=== PATIENT | male | born 1945 | race Hispanic/Latino ===

== ENCOUNTER → 2022-04-06 | Outpatient (CLI) | payer MEDICARE ==
[~2022-04-06] MED LIST: CYCLOBENZAPRINE10 MG PO; FARXIGA10 MG PO; KETOROLAC PO; NOVOLIN 70100 UNIT/3 SQ; NOVOLOG MI100 UNIT/1 SC
[2022-04-06 10:47] LABS: BASOPHILS % 0.3 % (0.0-1.0); EOSINOPHILS # (AUTO) 0.1 (0.0-0.4); EOSINOPHILS % 0.9 % (0.0-6.0); HEMATOCRIT 35.9 % (38.2-49.6); HEMOGLOBIN 11.4 g/dL (14.0-18.0); LYMPHOCYTES # (AUTO) 1.8 (1.0-3.2); LYMPHOCYTES % 26.3 % (18.0-39.1); MEAN CORPUSCULAR HEMOGLOBIN 31.1 pg (28-32); MEAN CORPUSCULAR HGB CONC 31.8 g/dL (31-35); MEAN CORPUSCULAR VOLUME 98.1 fL (81-99); MONOCYTES # (AUTO) 0.6 (0.2-0.8); MONOCYTES % 8.9 % (4.4-11.3); NEUTROPHILS # (AUTO) 4.4 (2.1-6.9); NEUTROPHILS % 63.5 % (38.7-80.0); PLATELET COUNT 212 x10e3/uL (140-360); RED BLOOD COUNT 3.66 x10e6/uL (4.3-5.7)
[2022-04-06 12:18] LABS: ANION GAP 13.3 mmol/L (8-16); CALCIUM 8.6 mg/dL (8.4-10.2); CREATININE, SERUM 0.88 mg/dL (0.72-1.25); POTASSIUM 4.3 mmol/L (3.5-5.1)
== END ==
LOC: RAD 10:11 → EDSTATUS 04-18 12:00
PROVIDERS: ATTEND Specialist
DX: Z01.810 Encounter for preprocedural cardiovascular examination (principal); Z01.812 Encounter for preprocedural laboratory examination; Z01.818 Encounter for other preprocedural examination; S52.201A Unspecified fracture of shaft of right ulna, initial encounter for closed fracture
CPT/HCPCS: 36415; 71046; 80048; 85025; 93005

== ENCOUNTER 2023-03-11 13:20 | Inpatient (IN) | payer MEDICARE ==
[~2023-03-11] VITALS: Ht 172.7 cm; Wt 63.5 kg
[2023-03-11] MEDS ORDERED: SODIUM CHLORIDE 0.9% 1000ML 1,000 ML IV STA (14:01)
[2023-03-11 14:26] LABS: BASOPHILS % 0.1 % (0.0-1.0); EOSINOPHILS % 0.1 % (0.0-6.0); HEMATOCRIT 30.6 % (38.2-49.6); HEMOGLOBIN 10.4 g/dL (14.0-18.0); LYMPHOCYTES # (AUTO) 1.5 (1.0-3.2); LYMPHOCYTES % 10.1 % (18.0-39.1); MEAN CORPUSCULAR VOLUME 88.2 fL (81-99); MONOCYTES # (AUTO) 0.9 (0.2-0.8); MONOCYTES % 6.4 % (4.4-11.3); PLATELET COUNT 353 x10e3/uL (140-360); RED BLOOD COUNT 3.47 x10e6/uL (4.3-5.7); RED CELL DISTRIBUTION WIDTH 12.2 % (11.7-14.4); WHITE BLOOD COUNT 14.46 x10e3/uL (4.8-10.8)
[2023-03-11 14:44] LABS: ALBUMIN 2.9 g/dL (3.5-5.0); ALBUMIN/GLOBULIN RATIO 0.5 (0.8-2.0); ANION GAP 21.3 mmol/L (8-16); BILIRUBIN,TOTAL 0.7 mg/dL (0.2-1.2); CALCIUM 9.5 mg/dL (8.4-10.2); CREATININE, SERUM 1.06 mg/dL (0.72-1.25); POTASSIUM 4.3 mmol/L (3.5-5.1); TOTAL PROTEIN 8.8 g/dL (6.5-8.1)
[2023-03-11] MEDS ORDERED: ONDANSETRON HCL INJ 2MG/ML 2ML 2 MG/ML VIAL IV PRN ×3 (16:00→22:00)
[2023-03-11] MEDS ORDERED: Morphine 4mg INJECTION 4 MG/ML INJ IV PRN ×2 (16:00)
[2023-03-11 18:05] VITALS: BP 131/61; PULSE 90; RESP 19; TEMP 98.7; O2SAT 95
[2023-03-11] MEDS ORDERED: DEXTROSE 50% SYRINGE 50 ML IV PRN ×2 (18:30→22:00)
[2023-03-11] MEDS ORDERED: COZAAR25 MG PO (18:37)
[2023-03-11] MEDS ORDERED: PLAVIX75 MG PO (18:37)
[2023-03-11] MEDS ORDERED: NEURONTIN300 MG PO (18:37)
[2023-03-11] MEDS ORDERED: VITAMIN D31250 MCG PO (18:37)
[2023-03-11 20:42] VITALS: BP 157/80; PULSE 91; RESP 18; TEMP 98.3; O2SAT 98
[2023-03-11] MEDS ORDERED: SODIUM CHLORIDE 0.9% 250ML 250 ML ONE (21:28)
[2023-03-11 21:48] VITALS: BP 157/80; PULSE 91; RESP 18; TEMP 98.3; O2SAT 98
[2023-03-11] MEDS: INSULIN LISPRO 100 UNIT/1 ML 3ML VIAL SQ SCH (21:48)
[2023-03-11] MEDS ORDERED: LIDOCAINE 4% PATCH TP PRN (22:00)
[2023-03-11] MEDS ORDERED: HYDRALAZINE HCL 20 MG/ML VIAL IV PRN (22:00)
[2023-03-11] MEDS ORDERED: DIPHENHYDRAMINE HCL 25 MG CAP PO PRN (22:00)
[2023-03-11] MEDS ORDERED: MELATONIN 5 MG TABLET PO PRN (22:00)
[2023-03-11] MEDS ORDERED: SIMETHICONE 80 MG CHEW PO PRN (22:00)
[2023-03-11] MEDS ORDERED: ALBUTEROL/IPRATROPIUM 3 ML NEB NEB PRN (22:00)
[2023-03-11] MEDS ORDERED: BENZONATATE 100 MG CAP PO PRN (22:00)
[2023-03-11] MEDS ORDERED: POTASSIUM CHLORIDE 20 MEQ TAB CR PO PRN (22:00)
[2023-03-11] MEDS: INSULIN GLARGINE 100 UNITS/ML VIAL SQ SCH (22:30)
[2023-03-12] VITALS (8 sets, daily range): BP systolic 116–143; BP diastolic 61–76; PULSE 69–106; RESP 16–20; TEMP 97.5–99; O2SAT 97–99
[2023-03-12 05:55] LABS: BASOPHILS % 0.1 % (0.0-1.0); EOSINOPHILS # (AUTO) 0.1 (0.0-0.4); EOSINOPHILS % 1.3 % (0.0-6.0); HEMATOCRIT 27.1 % (38.2-49.6); HEMOGLOBIN 9.1 g/dL (14.0-18.0); LYMPHOCYTES % 20.2 % (18.0-39.1); MEAN CORPUSCULAR HEMOGLOBIN 29.9 pg (28-32); MEAN CORPUSCULAR HGB CONC 33.6 g/dL (31-35); MEAN CORPUSCULAR VOLUME 89.1 fL (81-99); MONOCYTES # (AUTO) 0.9 (0.2-0.8); MONOCYTES % 8.9 % (4.4-11.3); NEUTROPHILS % 69.2 % (38.7-80.0); PLATELET COUNT 297 x10e3/uL (140-360); RED BLOOD COUNT 3.04 x10e6/uL (4.3-5.7); RED CELL DISTRIBUTION WIDTH 11.9 % (11.7-14.4); WHITE BLOOD COUNT 10.11 x10e3/uL (4.8-10.8)
[2023-03-12 06:35] LABS: ALBUMIN 2.5 g/dL (3.5-5.0); ALBUMIN/GLOBULIN RATIO 0.5 (0.8-2.0); ANION GAP 14.9 mmol/L (8-16); BILIRUBIN,TOTAL 0.5 mg/dL (0.2-1.2); CALCIUM 8.6 mg/dL (8.4-10.2); CREATININE, SERUM 0.82 mg/dL (0.72-1.25); POTASSIUM 3.9 mmol/L (3.5-5.1); TOTAL PROTEIN 7.3 g/dL (6.5-8.1)
[2023-03-12 07:19] LABS: CHOL/HDL RATIO 4.1 (3.9-4.7); MAGNESIUM 1.8 MG/DL (1.3-2.1)
[2023-03-12 07:40] LABS: THYROID STIMULATING HORMONE 1.557 uIU/mL (0.350-4.940)
[2023-03-12] MEDS: INSULIN LISPRO 100 UNIT/1 ML 3ML VIAL SQ SCH ×4 (08:26→20:29)
[2023-03-12] MEDS: PANTOPRAZOLE SOD 40 MG TABEC PO SCH (08:30)
[2023-03-12] MEDS: HYDROCODONE/APAP 5MG-325MG TAB PO PRN (10:00)
[2023-03-12] MEDS ORDERED: ONDANSETRON HCL 4 MG ORAL DISINTEGRATING TAB PO PRN (11:45)
[2023-03-12] MEDS: ENOXAPARIN SOD INJ 60 MG/0.6 ML SYR SC SCH ×2 (13:26→20:37)
[2023-03-12] MEDS ORDERED: ENOXAPARIN SOD INJ 40 MG/0.4 ML SYR SC SCH (17:00)
[2023-03-12] MEDS: GABAPENTIN 300 MG CAP PO SCH (17:23)
[2023-03-12] MEDS: Morphine 4mg INJECTION 4 MG/ML INJ IV PRN ×2 (17:28→21:29)
[2023-03-12] MEDS: ATORVASTATIN 40 MG TAB PO SCH (20:25)
[2023-03-12] MEDS: INSULIN GLARGINE 100 UNITS/ML VIAL SQ SCH (20:30)
[2023-03-13] VITALS (7 sets, daily range): BP systolic 113–145; BP diastolic 60–70; PULSE 90–105; RESP 18–19; TEMP 98.1–101.8; O2SAT 96–99
[2023-03-13] MEDS ORDERED: SODIUM CHLORIDE 0.9% 1000ML 1,000 ML IV SCH
[2023-03-13] MEDS: Morphine 4mg INJECTION 4 MG/ML INJ IV PRN (03:51)
[2023-03-13 05:59] LABS: BASOPHILS % 0.2 % (0.0-1.0); EOSINOPHILS # (AUTO) 0.1 (0.0-0.4); EOSINOPHILS % 1.3 % (0.0-6.0); HEMATOCRIT 26.1 % (38.2-49.6); LYMPHOCYTES # (AUTO) 1.6 (1.0-3.2); LYMPHOCYTES % 17.7 % (18.0-39.1); MEAN CORPUSCULAR HEMOGLOBIN 30.4 pg (28-32); MEAN CORPUSCULAR HGB CONC 34.5 g/dL (31-35); MEAN CORPUSCULAR VOLUME 88.2 fL (81-99); MONOCYTES # (AUTO) 0.8 (0.2-0.8); MONOCYTES % 8.7 % (4.4-11.3); NEUTROPHILS # (AUTO) 6.4 (2.1-6.9); NEUTROPHILS % 71.8 % (38.7-80.0); PLATELET COUNT 303 x10e3/uL (140-360); RED BLOOD COUNT 2.96 x10e6/uL (4.3-5.7); RED CELL DISTRIBUTION WIDTH 11.9 % (11.7-14.4); WHITE BLOOD COUNT 8.98 x10e3/uL (4.8-10.8)
[2023-03-13 06:32] LABS: ALBUMIN 2.4 g/dL (3.5-5.0); ALBUMIN/GLOBULIN RATIO 0.5 (0.8-2.0); ANION GAP 13.7 mmol/L (8-16); BILIRUBIN,TOTAL 0.4 mg/dL (0.2-1.2); CALCIUM 8.4 mg/dL (8.4-10.2); CREATININE, SERUM 0.81 mg/dL (0.72-1.25); POTASSIUM 3.7 mmol/L (3.5-5.1); TOTAL PROTEIN 6.9 g/dL (6.5-8.1)
[2023-03-13] MEDS: PANTOPRAZOLE SOD 40 MG TABEC PO SCH (07:30)
[2023-03-13] MEDS: INSULIN LISPRO 100 UNIT/1 ML 3ML VIAL SQ SCH ×5 (07:30→21:00)
[2023-03-13] MEDS ORDERED: LIDOCAINE HCL 2% LOCAL 20 ML VIAL ONE (08:21)
[2023-03-13] MEDS ORDERED: HEPARIN SOD (PORCINE) 1000 UNIT/ML 30ML ONE (08:21)
[2023-03-13] MEDS ORDERED: HEPARIN SOD/SOD CHLORIDE 2,000 ML ONE (08:22)
[2023-03-13] MEDS ORDERED: IOPAMIDOL 370 MG/ML 100 ML INFUS..BTL INJ ONE (08:22)
[2023-03-13] MEDS ORDERED: SODIUM CHLORIDE 0.9% 1000ML 1,000 ML ONE ×2 (08:22→09:01)
[2023-03-13] MEDS ORDERED: NITROGLYCERIN/D5W 200 MCG/ML 250 ML ONE (08:23)
[2023-03-13] MEDS: CLOPIDOGREL BISULFATE 75 MG TAB PO SCH (09:00)
[2023-03-13] MEDS: ENOXAPARIN SOD INJ 60 MG/0.6 ML SYR SC SCH ×2 (09:00→22:31)
[2023-03-13] MEDS ORDERED: MIDAZOLAM HCL 2 MG/2 ML VIAL ONE (09:01)
[2023-03-13] MEDS ORDERED: FENTANYL CITRATE/PF 100MCG/2 ML INJ ONE (09:01)
[2023-03-13] MEDS ORDERED: VERAPAMIL HCL 2.5 MG/ML 2 ML VIAL ONE (09:46)
[2023-03-13] MEDS ORDERED: CLOPIDOGREL BISULFATE 75 MG TAB ONE (10:14)
[2023-03-13] MEDS ORDERED: ASPIRIN 325 MG TAB ONE (10:14)
[2023-03-13] MEDS: GABAPENTIN 300 MG CAP PO SCH ×2 (12:27→17:01)
[2023-03-13] MEDS: METOPROLOL SUCCINATE 25 MG TAB XL PO SCH (12:28)
[2023-03-13] MEDS: SODIUM CHLORIDE 0.9% 1000ML 1,000 ML IV SCH ×2 (12:34→22:33)
[2023-03-13 14:49] LABS: FREE T4 (FREE THYROXINE) 1.33 ng/dL (0.8-1.8); THYROID STIMULATING HORMONE 1.024 uIU/mL (0.350-4.940)
[2023-03-13 16:29] LABS: ANION GAP 16.2 mmol/L (8-16); CALCIUM 8.8 mg/dL (8.4-10.2); CREATININE, SERUM 1.02 mg/dL (0.72-1.25); POTASSIUM 4.2 mmol/L (3.5-5.1)
[2023-03-13] MEDS: ATORVASTATIN 40 MG TAB PO SCH (22:31)
[2023-03-13] MEDS: INSULIN GLARGINE 100 UNITS/ML VIAL SQ SCH (22:36)
[2023-03-14] VITALS (7 sets, daily range): BP systolic 105–176; BP diastolic 52–93; PULSE 81–104; RESP 18–20; TEMP 98–100.2; O2SAT 93–99
[2023-03-14] MEDS: HYDROCODONE/APAP 5MG-325MG TAB PO PRN ×2 (03:13→10:40)
[2023-03-14] MEDS: INSULIN LISPRO 100 UNIT/1 ML 3ML VIAL SQ SCH ×7 (07:30→21:16)
[2023-03-14] MEDS: CLOPIDOGREL BISULFATE 75 MG TAB PO SCH (09:07)
[2023-03-14] MEDS: PANTOPRAZOLE SOD 40 MG TABEC PO SCH (09:07)
[2023-03-14] MEDS: GABAPENTIN 300 MG CAP PO SCH ×2 (09:07→17:16)
[2023-03-14] MEDS: ASPIRIN 81 MG CHEW TAB PO SCH (09:08)
[2023-03-14] MEDS: METOPROLOL SUCCINATE 25 MG TAB XL PO SCH (09:08)
[2023-03-14] MEDS: ENOXAPARIN SOD INJ 60 MG/0.6 ML SYR SC SCH ×2 (09:08→21:08)
[2023-03-14] MEDS: SODIUM CHLORIDE 0.9% 1000ML 1,000 ML IV SCH (09:09)
[2023-03-14] MEDS: ACETAMINOPHEN 325 MG TAB PO PRN (17:20)
[2023-03-14] MEDS: ATORVASTATIN 40 MG TAB PO SCH (21:08)
[2023-03-14] MEDS: INSULIN GLARGINE 100 UNITS/ML VIAL SQ SCH (21:17)
[2023-03-14] MEDS: Morphine 4mg INJECTION 4 MG/ML INJ IV PRN (21:22)
[2023-03-15] VITALS (7 sets, daily range): BP systolic 111–138; BP diastolic 54–73; PULSE 62–105; RESP 17–20; TEMP 97.8–99.9; O2SAT 94–98
[2023-03-15] MEDS: SODIUM CHLORIDE 0.9% 1000ML 1,000 ML IV SCH ×2 (01:44→20:48)
[2023-03-15 06:23] LABS: BASOPHILS % 0.2 % (0.0-1.0); EOSINOPHILS # (AUTO) 0.1 (0.0-0.4); EOSINOPHILS % 0.6 % (0.0-6.0); HEMATOCRIT 25.7 % (38.2-49.6); HEMOGLOBIN 8.5 g/dL (14.0-18.0); LYMPHOCYTES # (AUTO) 1.7 (1.0-3.2); LYMPHOCYTES % 16.5 % (18.0-39.1); MEAN CORPUSCULAR HEMOGLOBIN 30.4 pg (28-32); MEAN CORPUSCULAR HGB CONC 33.1 g/dL (31-35); MEAN CORPUSCULAR VOLUME 91.8 fL (81-99); MONOCYTES # (AUTO) 0.8 (0.2-0.8); MONOCYTES % 8.2 % (4.4-11.3); NEUTROPHILS # (AUTO) 7.5 (2.1-6.9); NEUTROPHILS % 74.2 % (38.7-80.0); PLATELET COUNT 290 x10e3/uL (140-360); RED CELL DISTRIBUTION WIDTH 12.5 % (11.7-14.4); WHITE BLOOD COUNT 10.09 x10e3/uL (4.8-10.8)
[2023-03-15 06:40] LABS: ANION GAP 12.9 mmol/L (8-16); CALCIUM 8.3 mg/dL (8.4-10.2); CREATININE, SERUM 0.8 mg/dL (0.72-1.25); POTASSIUM 3.9 mmol/L (3.5-5.1)
[2023-03-15] MEDS: INSULIN LISPRO 100 UNIT/1 ML 3ML VIAL SQ SCH ×7 (07:30→21:01)
[2023-03-15] MEDS: PANTOPRAZOLE SOD 40 MG TABEC PO SCH ×2 (07:30→09:37)
[2023-03-15] MEDS: CLOPIDOGREL BISULFATE 75 MG TAB PO SCH (09:00)
[2023-03-15] MEDS: GABAPENTIN 300 MG CAP PO SCH ×3 (09:00→17:54)
[2023-03-15] MEDS: ASPIRIN 81 MG CHEW TAB PO SCH (09:00)
[2023-03-15] MEDS: METOPROLOL SUCCINATE 25 MG TAB XL PO SCH (09:32)
[2023-03-15] MEDS: ENOXAPARIN SOD INJ 60 MG/0.6 ML SYR SC SCH ×2 (09:32→20:53)
[2023-03-15] MEDS: HYDROCODONE/APAP 5MG-325MG TAB PO PRN (13:13)
[2023-03-15] MEDS: ONDANSETRON HCL INJ 2MG/ML 2ML 2 MG/ML VIAL IV PRN ×2 (17:47→22:31)
[2023-03-15] MEDS: Morphine 4mg INJECTION 4 MG/ML INJ IV PRN ×2 (17:47→22:31)
[2023-03-15] MEDS: ATORVASTATIN 40 MG TAB PO SCH (20:49)
[2023-03-15] MEDS: ACETAMINOPHEN 325 MG TAB PO PRN (20:50)
[2023-03-15] MEDS: INSULIN GLARGINE 100 UNITS/ML VIAL SQ SCH (21:00)
[2023-03-16] VITALS (8 sets, daily range): BP systolic 107–141; BP diastolic 59–73; PULSE 52–100; RESP 18–20; TEMP 97.2–99.3; O2SAT 93–100
[2023-03-16] MEDS: SODIUM CHLORIDE 0.9% 1000ML 1,000 ML IV SCH ×3 (06:05→17:48)
[2023-03-16 06:36] LABS: BASOPHILS % 0.2 % (0.0-1.0); EOSINOPHILS # (AUTO) 0.1 (0.0-0.4); EOSINOPHILS % 1.3 % (0.0-6.0); HEMATOCRIT 23.5 % (38.2-49.6); HEMOGLOBIN 7.7 g/dL (14.0-18.0); LYMPHOCYTES # (AUTO) 1.3 (1.0-3.2); LYMPHOCYTES % 14.3 % (18.0-39.1); MEAN CORPUSCULAR HEMOGLOBIN 30.2 pg (28-32); MEAN CORPUSCULAR HGB CONC 32.8 g/dL (31-35); MEAN CORPUSCULAR VOLUME 92.2 fL (81-99); MONOCYTES % 10.4 % (4.4-11.3); NEUTROPHILS # (AUTO) 6.9 (2.1-6.9); NEUTROPHILS % 73.5 % (38.7-80.0); PLATELET COUNT 303 x10e3/uL (140-360); RED BLOOD COUNT 2.55 x10e6/uL (4.3-5.7); RED CELL DISTRIBUTION WIDTH 12.9 % (11.7-14.4); WHITE BLOOD COUNT 9.34 x10e3/uL (4.8-10.8)
[2023-03-16 07:03] LABS: CREATININE, SERUM 0.85 mg/dL (0.72-1.25)
[2023-03-16] MEDS: ENOXAPARIN SOD INJ 60 MG/0.6 ML SYR SC SCH ×2 (09:00→20:27)
[2023-03-16] MEDS: METOPROLOL SUCCINATE 25 MG TAB XL PO SCH (09:42)
[2023-03-16] MEDS: PANTOPRAZOLE SOD 40 MG TABEC PO SCH (09:42)
[2023-03-16] MEDS: GABAPENTIN 300 MG CAP PO SCH ×2 (09:42→17:44)
[2023-03-16] MEDS: INSULIN LISPRO 100 UNIT/1 ML 3ML VIAL SQ SCH ×7 (09:43→21:00)
[2023-03-16] MEDS: ONDANSETRON HCL INJ 2MG/ML 2ML 2 MG/ML VIAL IV PRN ×2 (09:45→21:02)
[2023-03-16] MEDS: DOCUSATE SODIUM 100 MG CAP PO PRN (09:49)
[2023-03-16] MEDS: ASPIRIN 81 MG CHEW TAB PO SCH (11:11)
[2023-03-16] MEDS: HYDROCODONE/APAP 5MG-325MG TAB PO PRN ×2 (14:13→20:19)
[2023-03-16] MEDS: ATORVASTATIN 40 MG TAB PO SCH (20:21)
[2023-03-16] MEDS: INSULIN GLARGINE 100 UNITS/ML VIAL SQ SCH (20:36)
[2023-03-17] VITALS (8 sets, daily range): BP systolic 100–135; BP diastolic 57–74; PULSE 71–124; RESP 18–20; TEMP 98.4–99.4; O2SAT 92–98
[2023-03-17] MEDS: SODIUM CHLORIDE 0.9% 1000ML 1,000 ML IV SCH ×2 (05:37→15:20)
[2023-03-17 05:41] LABS: BASOPHILS % 0.2 % (0.0-1.0); EOSINOPHILS # (AUTO) 0.1 (0.0-0.4); EOSINOPHILS % 0.9 % (0.0-6.0); HEMATOCRIT 23.7 % (38.2-49.6); HEMOGLOBIN 7.8 g/dL (14.0-18.0); LYMPHOCYTES # (AUTO) 1.4 (1.0-3.2); LYMPHOCYTES % 16.3 % (18.0-39.1); MEAN CORPUSCULAR HEMOGLOBIN 30.5 pg (28-32); MEAN CORPUSCULAR HGB CONC 32.9 g/dL (31-35); MEAN CORPUSCULAR VOLUME 92.6 fL (81-99); MONOCYTES # (AUTO) 0.8 (0.2-0.8); MONOCYTES % 9.3 % (4.4-11.3); NEUTROPHILS # (AUTO) 6.4 (2.1-6.9); PLATELET COUNT 319 x10e3/uL (140-360); RED BLOOD COUNT 2.56 x10e6/uL (4.3-5.7); RED CELL DISTRIBUTION WIDTH 13.2 % (11.7-14.4); WHITE BLOOD COUNT 8.79 x10e3/uL (4.8-10.8)
[2023-03-17 06:11] LABS: ANION GAP 12.2 mmol/L (8-16); CREATININE, SERUM 0.79 mg/dL (0.72-1.25); POTASSIUM 4.2 mmol/L (3.5-5.1)
[2023-03-17] MEDS: PANTOPRAZOLE SOD 40 MG TABEC PO SCH (08:42)
[2023-03-17] MEDS: GABAPENTIN 300 MG CAP PO SCH ×2 (08:42→17:06)
[2023-03-17] MEDS: ASPIRIN 81 MG CHEW TAB PO SCH (08:42)
[2023-03-17] MEDS: METOPROLOL SUCCINATE 25 MG TAB XL PO SCH (08:43)
[2023-03-17] MEDS: INSULIN LISPRO 100 UNIT/1 ML 3ML VIAL SQ SCH ×7 (08:44→20:55)
[2023-03-17] MEDS: ENOXAPARIN SOD INJ 60 MG/0.6 ML SYR SC SCH (08:47)
[2023-03-17] MEDS: ONDANSETRON HCL INJ 2MG/ML 2ML 2 MG/ML VIAL IV PRN ×2 (10:26→20:52)
[2023-03-17] MEDS: HYDROCODONE/APAP 5MG-325MG TAB PO PRN ×2 (10:27→18:45)
[2023-03-17] MEDS: Morphine 4mg INJECTION 4 MG/ML INJ IV PRN ×2 (15:19→20:53)
[2023-03-17] MEDS: SODIUM CHLORIDE 1 GM TAB PO SCH ×2 (15:20→20:50)
[2023-03-17] MEDS ORDERED: SODIUM CHLORIDE 0.9% 250ML 250 ML IV ONE (18:15)
[2023-03-17] MEDS: ATORVASTATIN 40 MG TAB PO SCH (20:50)
[2023-03-17] MEDS: ACETAMINOPHEN 325 MG TAB PO PRN (20:50)
[2023-03-17] MEDS: INSULIN GLARGINE 100 UNITS/ML VIAL SQ SCH (20:55)
[2023-03-18] VITALS (9 sets, daily range): BP systolic 112–154; BP diastolic 63–83; PULSE 86–102; RESP 16–19; TEMP 98–99.3; O2SAT 92–100
[2023-03-18] MEDS ORDERED: SODIUM CHLORIDE 0.9% 250ML 250 ML ONE (00:24)
[2023-03-18] MEDS: SODIUM CHLORIDE 0.9% 1000ML 1,000 ML IV SCH ×3 (03:04→20:53)
[2023-03-18 05:59] LABS: BASOPHILS % 0.3 % (0.0-1.0); EOSINOPHILS # (AUTO) 0.1 (0.0-0.4); EOSINOPHILS % 0.7 % (0.0-6.0); HEMATOCRIT 25.9 % (38.2-49.6); HEMOGLOBIN 8.6 g/dL (14.0-18.0); LYMPHOCYTES # (AUTO) 1.5 (1.0-3.2); LYMPHOCYTES % 13.5 % (18.0-39.1); MEAN CORPUSCULAR HEMOGLOBIN 30.5 pg (28-32); MEAN CORPUSCULAR HGB CONC 33.2 g/dL (31-35); MEAN CORPUSCULAR VOLUME 91.8 fL (81-99); MONOCYTES # (AUTO) 0.9 (0.2-0.8); MONOCYTES % 8.4 % (4.4-11.3); NEUTROPHILS # (AUTO) 8.5 (2.1-6.9); NEUTROPHILS % 76.7 % (38.7-80.0); PLATELET COUNT 324 x10e3/uL (140-360); RED BLOOD COUNT 2.82 x10e6/uL (4.3-5.7); RED CELL DISTRIBUTION WIDTH 13.8 % (11.7-14.4); WHITE BLOOD COUNT 11.12 x10e3/uL (4.8-10.8)
[2023-03-18 06:34] LABS: ANION GAP 14.2 mmol/L (8-16); CALCIUM 7.9 mg/dL (8.4-10.2); CREATININE, SERUM 0.85 mg/dL (0.72-1.25); POTASSIUM 4.2 mmol/L (3.5-5.1)
[2023-03-18] MEDS: PANTOPRAZOLE SOD 40 MG TABEC PO SCH (07:30)
[2023-03-18] MEDS: INSULIN LISPRO 100 UNIT/1 ML 3ML VIAL SQ SCH ×7 (07:30→21:15)
[2023-03-18] MEDS: GABAPENTIN 300 MG CAP PO SCH ×2 (08:13→18:13)
[2023-03-18] MEDS: METOPROLOL SUCCINATE 25 MG TAB XL PO SCH (08:13)
[2023-03-18] MEDS: ASPIRIN 81 MG CHEW TAB PO SCH (08:13)
[2023-03-18] MEDS: SODIUM CHLORIDE 1 GM TAB PO SCH (09:00)
[2023-03-18] MEDS: Morphine 4mg INJECTION 4 MG/ML INJ IV PRN (09:26)
[2023-03-18] MEDS: ONDANSETRON HCL INJ 2MG/ML 2ML 2 MG/ML VIAL IV PRN (10:17)
[2023-03-18] MEDS ORDERED: SEVOFLURANE INHAL SOLN 250 ML PEN BTL ONE (11:50)
[2023-03-18] MEDS ORDERED: PROPOFOL IV EMULSION 10 MG/ML 20 ML VIAL ONE (11:50)
[2023-03-18] MEDS ORDERED: LIDOCAINE HCL 2% LOCAL INJ 5 ML SDV VIAL INJ ONE (11:50)
[2023-03-18] MEDS ORDERED: FENTANYL CITRATE/PF 100MCG/2 ML INJ ONE (11:54)
[2023-03-18] MEDS ORDERED: ONDANSETRON HCL INJ 2MG/ML 2ML 2 MG/ML VIAL IV PRN (14:15)
[2023-03-18] MEDS ORDERED: Morphine 4mg INJECTION 4 MG/ML INJ ONE (14:35)
[2023-03-18] MEDS ORDERED: ACETAMINOPHEN 1000 MG/100 ML IV PRN (17:00)
[2023-03-18] MEDS: HYDROCODONE/APAP 7.5MG-325MG 1 EA TAB PO PRN ×2 (18:14→20:53)
[2023-03-18] MEDS: ATORVASTATIN 40 MG TAB PO SCH (20:53)
[2023-03-18] MEDS: INSULIN GLARGINE 100 UNITS/ML VIAL SQ SCH (20:56)
[2023-03-18] MEDS: HYDROMORPHONE 1MG/1ML INJ IV PRN (23:43)
[2023-03-19] VITALS (8 sets, daily range): BP systolic 96–141; BP diastolic 58–72; PULSE 61–93; RESP 18–20; TEMP 97.5–98.8; O2SAT 92–100
[2023-03-19 06:20] LABS: BASOPHILS % 0.2 % (0.0-1.0); EOSINOPHILS # (AUTO) 0.1 (0.0-0.4); EOSINOPHILS % 1.7 % (0.0-6.0); HEMATOCRIT 23.9 % (38.2-49.6); LYMPHOCYTES # (AUTO) 1.3 (1.0-3.2); LYMPHOCYTES % 18.8 % (18.0-39.1); MEAN CORPUSCULAR HGB CONC 33.1 g/dL (31-35); MEAN CORPUSCULAR VOLUME 90.9 fL (81-99); MONOCYTES # (AUTO) 0.6 (0.2-0.8); MONOCYTES % 9.2 % (4.4-11.3); NEUTROPHILS # (AUTO) 4.6 (2.1-6.9); NEUTROPHILS % 69.3 % (38.7-80.0); PLATELET COUNT 373 x10e3/uL (140-360); RED BLOOD COUNT 2.63 x10e6/uL (4.3-5.7); RED CELL DISTRIBUTION WIDTH 14.3 % (11.7-14.4); WHITE BLOOD COUNT 6.64 x10e3/uL (4.8-10.8)
[2023-03-19 06:33] LABS: HEMOGLOBIN 7.9 g/dL (14.0-18.0)
[2023-03-19 06:49] LABS: ANION GAP 11.8 mmol/L (8-16); CALCIUM 7.7 mg/dL (8.4-10.2); CREATININE, SERUM 0.78 mg/dL (0.72-1.25); POTASSIUM 3.8 mmol/L (3.5-5.1)
[2023-03-19] MEDS: INSULIN LISPRO 100 UNIT/1 ML 3ML VIAL SQ SCH ×7 (08:19→21:00)
[2023-03-19] MEDS: ASPIRIN 81 MG CHEW TAB PO SCH (10:10)
[2023-03-19] MEDS: HYDROCODONE/APAP 7.5MG-325MG 1 EA TAB PO PRN ×2 (10:11→14:18)
[2023-03-19] MEDS: GABAPENTIN 300 MG CAP PO SCH ×2 (10:11→16:49)
[2023-03-19] MEDS: PANTOPRAZOLE SOD 40 MG TABEC PO SCH (10:11)
[2023-03-19] MEDS: METOPROLOL SUCCINATE 25 MG TAB XL PO SCH (10:11)
[2023-03-19] MEDS: SODIUM CHLORIDE 0.9% 1000ML 1,000 ML IV SCH (10:18)
[2023-03-19] MEDS: ENOXAPARIN SOD INJ 40 MG/0.4 ML SYR SC SCH (16:50)
[2023-03-19] MEDS: HYDROMORPHONE 1MG/1ML INJ IV PRN (19:30)
[2023-03-19] MEDS: ATORVASTATIN 40 MG TAB PO SCH (20:00)
[2023-03-19] MEDS ORDERED: INSULIN GLARGINE 100 UNITS/ML VIAL SQ SCH (21:00)
[2023-03-20] VITALS (7 sets, daily range): BP systolic 114–146; BP diastolic 61–76; PULSE 88–101; RESP 16–20; TEMP 98.6–99.4; O2SAT 94–100
[2023-03-20] MEDS: HYDROMORPHONE 1MG/1ML INJ IV PRN ×2 (00:49→04:11)
[2023-03-20 05:58] LABS: BASOPHILS % 0.1 % (0.0-1.0); EOSINOPHILS # (AUTO) 0.1 (0.0-0.4); EOSINOPHILS % 1.1 % (0.0-6.0); HEMATOCRIT 25.7 % (38.2-49.6); HEMOGLOBIN 8.4 g/dL (14.0-18.0); LYMPHOCYTES # (AUTO) 1.2 (1.0-3.2); LYMPHOCYTES % 12.8 % (18.0-39.1); MEAN CORPUSCULAR HEMOGLOBIN 29.9 pg (28-32); MEAN CORPUSCULAR HGB CONC 32.7 g/dL (31-35); MEAN CORPUSCULAR VOLUME 91.5 fL (81-99); MONOCYTES # (AUTO) 0.7 (0.2-0.8); MONOCYTES % 7.8 % (4.4-11.3); NEUTROPHILS # (AUTO) 7.3 (2.1-6.9); NEUTROPHILS % 77.5 % (38.7-80.0); PLATELET COUNT 382 x10e3/uL (140-360); RED BLOOD COUNT 2.81 x10e6/uL (4.3-5.7); RED CELL DISTRIBUTION WIDTH 14.2 % (11.7-14.4); WHITE BLOOD COUNT 9.36 x10e3/uL (4.8-10.8)
[2023-03-20 06:19] LABS: ANION GAP 13.1 mmol/L (8-16); CALCIUM 8.1 mg/dL (8.4-10.2); CREATININE, SERUM 0.84 mg/dL (0.72-1.25); POTASSIUM 4.1 mmol/L (3.5-5.1)
[2023-03-20] MEDS ORDERED: ONDANSETRON HCL 4 MG ORAL DISINTEGRATING TAB PO PRN (07:30)
[2023-03-20] MEDS: PANTOPRAZOLE SOD 40 MG TABEC PO SCH (09:02)
[2023-03-20] MEDS: ASPIRIN 81 MG CHEW TAB PO SCH (09:03)
[2023-03-20] MEDS: METOPROLOL SUCCINATE 25 MG TAB XL PO SCH (09:03)
[2023-03-20] MEDS: GABAPENTIN 300 MG CAP PO SCH ×2 (09:03→17:55)
[2023-03-20] MEDS: INSULIN LISPRO 100 UNIT/1 ML 3ML VIAL SQ SCH ×7 (09:04→20:23)
[2023-03-20] MEDS: DOCUSATE SODIUM 100 MG CAP PO PRN (14:10)
[2023-03-20] MEDS: HYDROCODONE/APAP 7.5MG-325MG 1 EA TAB PO PRN ×2 (14:12→23:52)
[2023-03-20] MEDS ORDERED: CITRATE OF MAGNESIA 300ML BOTTLE PO ONE (15:00)
[2023-03-20] MEDS: ENOXAPARIN SOD INJ 40 MG/0.4 ML SYR SC SCH (17:56)
[2023-03-20] MEDS: ATORVASTATIN 40 MG TAB PO SCH (20:18)
[2023-03-20] MEDS ORDERED: INSULIN GLARGINE 100 UNITS/ML VIAL SQ SCH (21:00)
[2023-03-21] VITALS: BP 138/74; PULSE 90; RESP 20; TEMP 99.6; O2SAT 96
[2023-03-21 04:00] VITALS: BP 136/70; PULSE 89; RESP 20; TEMP 99.4; O2SAT 92
[2023-03-21 06:44] LABS: BASOPHILS % 0.1 % (0.0-1.0); EOSINOPHILS # (AUTO) 0.1 (0.0-0.4); EOSINOPHILS % 0.9 % (0.0-6.0); LYMPHOCYTES # (AUTO) 1.4 (1.0-3.2); MEAN CORPUSCULAR HEMOGLOBIN 29.4 pg (28-32); MEAN CORPUSCULAR VOLUME 91.9 fL (81-99); MONOCYTES # (AUTO) 0.7 (0.2-0.8); MONOCYTES % 7.9 % (4.4-11.3); NEUTROPHILS # (AUTO) 6.2 (2.1-6.9); NEUTROPHILS % 73.6 % (38.7-80.0); PLATELET COUNT 375 x10e3/uL (140-360); RED BLOOD COUNT 2.72 x10e6/uL (4.3-5.7); RED CELL DISTRIBUTION WIDTH 14.3 % (11.7-14.4); WHITE BLOOD COUNT 8.48 x10e3/uL (4.8-10.8)
[2023-03-21 07:04] LABS: ANION GAP 14.1 mmol/L (8-16); CALCIUM 8.1 mg/dL (8.4-10.2); CREATININE, SERUM 0.77 mg/dL (0.72-1.25); POTASSIUM 4.1 mmol/L (3.5-5.1)
[2023-03-21 08:25] VITALS: BP 141/76; PULSE 96; RESP 16; TEMP 98.1; O2SAT 96
[2023-03-21 08:53] VITALS: BP 141/76; PULSE 96; RESP 16; TEMP 98.1; O2SAT 96
[2023-03-21] MEDS: PANTOPRAZOLE SOD 40 MG TABEC PO SCH (10:00)
[2023-03-21] MEDS: ASPIRIN 81 MG CHEW TAB PO SCH (10:00)
[2023-03-21] MEDS: METOPROLOL SUCCINATE 25 MG TAB XL PO SCH (10:01)
[2023-03-21] MEDS: GABAPENTIN 300 MG CAP PO SCH ×2 (10:01→17:02)
[2023-03-21] MEDS: INSULIN LISPRO 100 UNIT/1 ML 3ML VIAL SQ SCH ×7 (10:03→20:41)
[2023-03-21 11:37] VITALS: BP 106/64; PULSE 98; RESP 19; TEMP 97.9; O2SAT 93
[2023-03-21] MEDS: CLOPIDOGREL BISULFATE 75 MG TAB PO SCH (13:11)
[2023-03-21] MEDS: HYDROCODONE/APAP 7.5MG-325MG 1 EA TAB PO PRN (13:54)
[2023-03-21] MEDS: ENOXAPARIN SOD INJ 40 MG/0.4 ML SYR SC SCH (17:02)
[2023-03-21 20:00] VITALS: BP 124/66; PULSE 90; RESP 18; TEMP 98.6; O2SAT 95
[2023-03-21] MEDS: ATORVASTATIN 40 MG TAB PO SCH (21:30)
[2023-03-21] MEDS: INSULIN GLARGINE 100 UNITS/ML VIAL SQ SCH (21:35)
[2023-03-22] VITALS (9 sets, daily range): BP systolic 114–145; BP diastolic 61–74; PULSE 88–101; RESP 16–19; TEMP 97.5–101.7; O2SAT 92–96
[2023-03-22] MEDS: ACETAMINOPHEN 325 MG TAB PO PRN (05:55)
[2023-03-22] MEDS: PANTOPRAZOLE SOD 40 MG TABEC PO SCH (08:59)
[2023-03-22] MEDS: INSULIN LISPRO 100 UNIT/1 ML 3ML VIAL SQ SCH ×7 (09:05→20:45)
[2023-03-22] MEDS: METOPROLOL SUCCINATE 25 MG TAB XL PO SCH (09:15)
[2023-03-22] MEDS: CLOPIDOGREL BISULFATE 75 MG TAB PO SCH (09:15)
[2023-03-22] MEDS: ASPIRIN 81 MG CHEW TAB PO SCH (09:15)
[2023-03-22] MEDS: GABAPENTIN 300 MG CAP PO SCH (09:15)
[2023-03-22] MEDS ORDERED: Vancomycin IV 1 GM in SODIUM CHLORIDE 0.9% 250ML 250 ML IV ONE (10:30)
[2023-03-22] MEDS: CEFTRIAXONE 2 GM in SODIUM CHLORIDE 0.9% 100 ML IV SCH ×2 (10:54→20:30)
[2023-03-22] MEDS: HYDROCODONE/APAP 7.5MG-325MG 1 EA TAB PO PRN (13:30)
[2023-03-22] MEDS: ENOXAPARIN SOD INJ 40 MG/0.4 ML SYR SC SCH (16:51)
[2023-03-22] MEDS: HYDROMORPHONE 1MG/1ML INJ IV PRN (17:33)
[2023-03-22] MEDS: ATORVASTATIN 40 MG TAB PO SCH (20:20)
[2023-03-22] MEDS: Vancomycin IV 1 GM in SODIUM CHLORIDE 0.9% 250ML 250 ML IV SCH (20:23)
[2023-03-22] MEDS: INSULIN GLARGINE 100 UNITS/ML VIAL SQ SCH (20:42)
[2023-03-23] VITALS (8 sets, daily range): BP systolic 117–147; BP diastolic 56–81; PULSE 91–98; RESP 17–20; TEMP 98.2–99.3; O2SAT 91–98
[2023-03-23] MEDS: INSULIN LISPRO 100 UNIT/1 ML 3ML VIAL SQ SCH ×7 (07:30→19:46)
[2023-03-23] MEDS: PANTOPRAZOLE SOD 40 MG TABEC PO SCH (08:53)
[2023-03-23] MEDS: METOPROLOL SUCCINATE 25 MG TAB XL PO SCH (08:53)
[2023-03-23] MEDS: ASPIRIN 81 MG CHEW TAB PO SCH (08:53)
[2023-03-23] MEDS: CLOPIDOGREL BISULFATE 75 MG TAB PO SCH (08:54)
[2023-03-23] MEDS: CEFTRIAXONE 2 GM in SODIUM CHLORIDE 0.9% 100 ML IV SCH (08:55)
[2023-03-23] MEDS: Vancomycin IV 1 GM in SODIUM CHLORIDE 0.9% 250ML 250 ML IV SCH (10:45)
[2023-03-23 11:54] LABS: BASOPHILS % 0.2 % (0.0-1.0); EOSINOPHILS % 0.2 % (0.0-6.0); HEMATOCRIT 24.8 % (38.2-49.6); HEMOGLOBIN 8.1 g/dL (14.0-18.0); LYMPHOCYTES # (AUTO) 1.4 (1.0-3.2); LYMPHOCYTES % 11.2 % (18.0-39.1); MEAN CORPUSCULAR HEMOGLOBIN 29.8 pg (28-32); MEAN CORPUSCULAR HGB CONC 32.7 g/dL (31-35); MEAN CORPUSCULAR VOLUME 91.2 fL (81-99); MONOCYTES # (AUTO) 0.9 (0.2-0.8); MONOCYTES % 7.6 % (4.4-11.3); NEUTROPHILS # (AUTO) 9.8 (2.1-6.9); NEUTROPHILS % 80.3 % (38.7-80.0); PLATELET COUNT 398 x10e3/uL (140-360); RED BLOOD COUNT 2.72 x10e6/uL (4.3-5.7); RED CELL DISTRIBUTION WIDTH 14.4 % (11.7-14.4); WHITE BLOOD COUNT 12.18 x10e3/uL (4.8-10.8)
[2023-03-23 12:22] LABS: ALBUMIN 2.2 g/dL (3.5-5.0); ALBUMIN/GLOBULIN RATIO 0.5 (0.8-2.0); ANION GAP 15.2 mmol/L (8-16); BILIRUBIN,TOTAL 0.5 mg/dL (0.2-1.2); CALCIUM 8.4 mg/dL (8.4-10.2); CREATININE, SERUM 0.73 mg/dL (0.72-1.25); POTASSIUM 4.2 mmol/L (3.5-5.1)
[2023-03-23 12:50] LABS: ALBUMIN 2.2 g/dL (3.5-5.0); BILIRUBIN,DIRECT 0.3 mg/dL (0.0-0.5); BILIRUBIN,TOTAL 0.5 mg/dL (0.2-1.2)
[2023-03-23] MEDS: HYDROCODONE/APAP 7.5MG-325MG 1 EA TAB PO PRN ×2 (13:39→19:52)
[2023-03-23] MEDS: ENOXAPARIN SOD INJ 40 MG/0.4 ML SYR SC SCH (16:23)
[2023-03-23] MEDS: ATORVASTATIN 40 MG TAB PO SCH (21:08)
[2023-03-23] MEDS: INSULIN GLARGINE 100 UNITS/ML VIAL SQ SCH (21:09)
[2023-03-23] MEDS: HYDROMORPHONE 1MG/1ML INJ IV PRN (23:02)
[2023-03-24] VITALS (8 sets, daily range): BP systolic 127–139; BP diastolic 68–78; PULSE 90–96; RESP 17–20; TEMP 97.7–98.6; O2SAT 93–100
[2023-03-24] MEDS: INSULIN LISPRO 100 UNIT/1 ML 3ML VIAL SQ SCH ×7 (07:30→20:55)
[2023-03-24] MEDS: PANTOPRAZOLE SOD 40 MG TABEC PO SCH (08:26)
[2023-03-24] MEDS: ASPIRIN 81 MG CHEW TAB PO SCH (08:26)
[2023-03-24] MEDS: CLOPIDOGREL BISULFATE 75 MG TAB PO SCH (08:26)
[2023-03-24] MEDS: HYDROCODONE/APAP 7.5MG-325MG 1 EA TAB PO PRN ×2 (08:27→14:54)
[2023-03-24] MEDS: METOPROLOL SUCCINATE 25 MG TAB XL PO SCH (08:27)
[2023-03-24] MEDS: ENOXAPARIN SOD INJ 40 MG/0.4 ML SYR SC SCH (16:36)
[2023-03-24] MEDS: HYDROMORPHONE 1MG/1ML INJ IV PRN (19:56)
[2023-03-24] MEDS: ATORVASTATIN 40 MG TAB PO SCH (19:56)
[2023-03-24] MEDS ORDERED: INSULIN GLARGINE 100 UNITS/ML VIAL SQ SCH (21:00)
[2023-03-25] VITALS (8 sets, daily range): BP systolic 122–161; BP diastolic 62–76; PULSE 87–101; RESP 16–19; TEMP 98.2–99.7; O2SAT 93–99
[2023-03-25 06:00] LABS: BASOPHILS % 0.2 % (0.0-1.0); EOSINOPHILS % 0.3 % (0.0-6.0); HEMATOCRIT 24.5 % (38.2-49.6); LYMPHOCYTES # (AUTO) 1.4 (1.0-3.2); LYMPHOCYTES % 15.8 % (18.0-39.1); MEAN CORPUSCULAR HEMOGLOBIN 29.5 pg (28-32); MEAN CORPUSCULAR HGB CONC 32.7 g/dL (31-35); MEAN CORPUSCULAR VOLUME 90.4 fL (81-99); MONOCYTES # (AUTO) 0.7 (0.2-0.8); MONOCYTES % 7.9 % (4.4-11.3); NEUTROPHILS # (AUTO) 6.6 (2.1-6.9); NEUTROPHILS % 75.5 % (38.7-80.0); PLATELET COUNT 420 x10e3/uL (140-360); RED BLOOD COUNT 2.71 x10e6/uL (4.3-5.7); RED CELL DISTRIBUTION WIDTH 14.4 % (11.7-14.4); WHITE BLOOD COUNT 8.74 x10e3/uL (4.8-10.8)
[2023-03-25 06:35] LABS: ANION GAP 16.2 mmol/L (8-16); CALCIUM 8.5 mg/dL (8.4-10.2); CREATININE, SERUM 0.79 mg/dL (0.72-1.25); POTASSIUM 4.2 mmol/L (3.5-5.1)
[2023-03-25] MEDS: INSULIN LISPRO 100 UNIT/1 ML 3ML VIAL SQ SCH ×6 (07:30→16:30)
[2023-03-25] MEDS: METOPROLOL SUCCINATE 25 MG TAB XL PO SCH (09:53)
[2023-03-25] MEDS: CLOPIDOGREL BISULFATE 75 MG TAB PO SCH (09:53)
[2023-03-25] MEDS: HYDROCODONE/APAP 7.5MG-325MG 1 EA TAB PO PRN (09:53)
[2023-03-25] MEDS: PANTOPRAZOLE SOD 40 MG TABEC PO SCH (09:54)
[2023-03-25] MEDS: ASPIRIN 81 MG CHEW TAB PO SCH (09:54)
[2023-03-25] MEDS: HYDROMORPHONE 1MG/1ML INJ IV PRN (14:09)
[2023-03-25] MEDS ORDERED: SODIUM CHLORIDE 1 GM TAB PO SCH (15:00)
[2023-03-25] MEDS: ENOXAPARIN SOD INJ 40 MG/0.4 ML SYR SC SCH (17:19)
[2023-03-25] MEDS ORDERED: PANTOPRAZOLE SO40 MG PO (18:10)
[2023-03-25] MEDS ORDERED: ATORVASTATIN CA20 MG PO (18:11)
[2023-03-25] MEDS ORDERED: METOPROLOL SUCC25 MG PO (18:11)
[2023-03-25] MEDS ORDERED: ASPIRIN EC81 MG PO (18:12)
[2023-03-25] MEDS ORDERED: LANTUS 3ML100 UNITS/ SQ (18:13)
[2023-03-25] MEDS ORDERED: INSULIN LI100 UNIT/1 SQ (18:13)
[2023-03-25] MEDS ORDERED: SODIUM CHLORI1000 MG PO (18:14)
== END 2023-03-25 20:30 | DRG 240 ==
LOC: ER 13:34 → ERHOLD 16:01 → MED/SURG3 16:53
PROVIDERS: ADMIT Internal Medicine; ATTEND Internal Medicine
PROC: 04HK3DZ Insertion of Intraluminal Device into Right Femoral Artery, Percutaneous Approach (ICD-10-PCS; 2023-03-13)
PROC: 047N3Z1 Dilation of Left Popliteal Artery using Drug-Coated Balloon, Percutaneous Approach (ICD-10-PCS; 2023-03-13)
PROC: B4101ZZ Fluoroscopy of Abdominal Aorta using Low Osmolar Contrast (ICD-10-PCS; 2023-03-13)
PROC: 30243N1 Transfusion of Nonautologous Red Blood Cells into Central Vein, Percutaneous Approach (ICD-10-PCS; 2023-03-18)
PROC: 0Y6G0ZZ Detachment at Left Knee Region, Open Approach (ICD-10-PCS; principal; 2023-03-18 11:54)
DX: E11.52 Type 2 diabetes mellitus with diabetic peripheral angiopathy with gangrene (principal); E87.1 Hypo-osmolality and hyponatremia; I96 Gangrene, not elsewhere classified; M86.172 Other acute osteomyelitis, left ankle and foot; L03.116 Cellulitis of left lower limb; I12.0 Hypertensive chronic kidney disease with stage 5 chronic kidney disease or end stage renal disease; L97.528 Non-pressure chronic ulcer of other part of left foot with other specified severity; I70.25 Atherosclerosis of native arteries of other extremities with ulceration; E11.42 Type 2 diabetes mellitus with diabetic polyneuropathy; E11.22 Type 2 diabetes mellitus with diabetic chronic kidney disease; Z79.4 Long term (current) use of insulin; Z83.3 Family history of diabetes mellitus; Z82.49 Family history of ischemic heart disease and other diseases of the circulatory system; Z79.02 Long term (current) use of antithrombotics/antiplatelets; Z89.422 Acquired absence of other left toe(s); Z89.421 Acquired absence of other right toe(s); Z63.9 Problem related to primary support group, unspecified; Z20.822 Contact with and (suspected) exposure to COVID-19; D64.9 Anemia, unspecified
CPT/HCPCS: 36415; 37224; 37226; 71045; 75630; 75716; 76937; 80048; 80053; 80061; 80076; 82948; 83036; 83605; 83735; 84439; 84443; 85025; 85651; 86850; 86900; 86920; 87040; 87086; 87400; 88304; 88307; 88311; 93005; 93306; 93926; 96361; 96372; 99152; 99153; 99252; 99284; C1760; C1769; C1876; C2623; J0696; J1170; J1644; J1650; J1815; J2001; J2250; J2270; J2405; J2543; J7030; J7050; J7799; P9016; Q0162; Q9967; U0002

== ENCOUNTER 2024-10-25 15:04 | Emergency (ER) | payer MEDICARE ==
[~2024-10-25] VITALS: Ht 175.3 cm; Wt 68.0 kg
[~2024-10-25 15:04] MED LIST changes: +ASPIRIN EC81 MG PO; +ATORVASTATIN CA20 MG PO; +CEPHALEXIN500 MG PO; +COZAAR25 MG PO; +INSULIN LI100 UNIT/1 SQ; +LANTUS 3ML100 UNITS/ SQ; +METFORMIN HCL500 M2 PO; +METOPROLOL SUCC25 MG PO; +NEURONTIN300 MG PO; +PANTOPRAZOLE SO40 MG PO; +PLAVIX75 MG PO; +SODIUM CHLORI1000 MG PO; +VITAMIN D31250 MCG PO
[2024-10-25 15:10] VITALS: TEMP 97.9
[2024-10-25 15:30] LABS: BASOPHILS % 0.3 % (0.0-1.0); EOSINOPHILS % 0.6 % (0.0-6.0); HEMATOCRIT 37.5 % (38.2-49.6); HEMOGLOBIN 12.7 g/dL (14.0-18.0); LYMPHOCYTES # (AUTO) 1.1 (1.0-3.2); LYMPHOCYTES % 17.8 % (18.0-39.1); MEAN CORPUSCULAR HEMOGLOBIN 30.6 pg (28-32); MEAN CORPUSCULAR HGB CONC 33.9 g/dL (31-35); MEAN CORPUSCULAR VOLUME 90.4 fL (81-99); MONOCYTES # (AUTO) 0.5 (0.2-0.8); MONOCYTES % 7.6 % (4.4-11.3); NEUTROPHILS # (AUTO) 4.7 (2.1-6.9); NEUTROPHILS % 73.4 % (38.7-80.0); PLATELET COUNT 259 x10e3/uL (140-360); RED BLOOD COUNT 4.15 x10e6/uL (4.3-5.7); RED CELL DISTRIBUTION WIDTH 13.3 % (11.7-14.4); WHITE BLOOD COUNT 6.41 x10e3/uL (4.8-10.8)
[2024-10-25 16:01] VITALS: RESP 18
[2024-10-25 16:18] LABS: ALBUMIN 4.2 g/dL (3.5-5.0); ANION GAP 15.9 mmol/L (8-16); BILIRUBIN,TOTAL 0.4 mg/dL (0.2-1.2); CALCIUM 8.9 mg/dL (8.4-10.2); CREATININE, SERUM 1.03 mg/dL (0.72-1.25); POTASSIUM 3.9 mmol/L (3.5-5.1); TOTAL PROTEIN 8.5 g/dL (6.5-8.1)
[2024-10-25 17:07] VITALS: PULSE 92; O2SAT 100
== END 2024-10-25 17:35 | disposition home or self-care (01) ==
LOC: ER 15:08
DX: E11.649 Type 2 diabetes mellitus with hypoglycemia without coma (principal); I12.9 Hypertensive chronic kidney disease with stage 1 through stage 4 chronic kidney disease, or unspecified chronic kidney disease; E11.22 Type 2 diabetes mellitus with diabetic chronic kidney disease; N18.9 Chronic kidney disease, unspecified; E78.5 Hyperlipidemia, unspecified
CPT/HCPCS: 36415; 80053; 82948; 85025; 99283